=== PATIENT | female | born 1930 | race Caucasian/White ===

== ENCOUNTER → 2017-03-20 | Outpatient (CLI) | payer MEDICARE, BC | LOC: M.CT 08:43 | DX: K40.90 Unilateral inguinal hernia, without obstruction or gangrene, not specified as recurrent (principal); N28.89 Other specified disorders of kidney and ureter; D73.4 Cyst of spleen; I42.8 Other cardiomyopathies ==

== ENCOUNTER → 2017-10-22 | Outpatient (CLI) | payer MEDICARE, BC ==
--- NOTE | 2017-10-22 11:52 | 2DMMODE ---
[place] [address] 2 D/M-MODE ECHOCARDIOGRAM Name: SANAZ MARRERO Room: [facility]#: [id number] Admission: 10/22/17 Attend Phys: Navarro Blankenship Discharge: Date of : 34 Date of Service: 10/22/17 1152 Report #: [id number] THIS REPORT FOR: //name// APPROVED REPORT Study performed: 10/22/2017 09:17:33 EXAM: Comprehensive 2D, Doppler, and color-flow Echocardiogram Patient Location: Out-Patient Status: routine BSA: 1.75 HR: 65 bpm BP: 130/72 mmHg Other Information Study Quality: Good Indications Cardiomyopathy 2D Dimensions LVEF(%): 48.92 (>50%) IVSd: 13.10 (7-11mm) LVOT Diam: 20.63 (18-24mm) LVDd: 40.63 mm PWd: 13.19 (7-11mm) Ascending Ao: 28.81 (22-36mm) LVDs: 30.72 (25-40mm) Aortic Root: 30.65 mm Lake's LVEF: 48.92 % Volumes Left Atrial Volume (Systole) LA ESV Index: 18.30 mL/m2 Aortic Valve AoV Peak Hunter.: 1.42 m/s AO Peak Gr.: 8.04 mmHg LVOT Max P.37 mmHg AO Mean Gr.: 3.96 mmHg LVOT Mean P.22 mmHg LVOT Max V: 0.77 m/s AO V2 VTI: 24.56 cm LVOT Mean V: 0.51 m/s JORGE (VTI): 2.06 cm2 LVOT V1 VTI: 15.10 cm Mitral Valve E/A Ratio: 0.50 MV Decel. Time: 381.24 [place] [address] 2 D/M-MODE ECHOCARDIOGRAM Name: SANAZ MARRERO Room: [facility]#: [id number] Admission: 10/22/17 Attend Phys: Navarro Blankenship Discharge: Date of : 34 Date of Service: 10/22/17 1152 Report #: [id number] MV E Max Hunter.: 0.40 m/s MV PHT: 110.56 ms MVA (PHT): 1.99 cm2 TDI E/Lateral E': 8.00 E/Medial E': 6.67 Medial E' Hunter.: 0.06 m/s Lateral E' Hunter.: 0.05 m/s Pulmonary Valve PV Peak Hunter.: 1.00 m/s PV Peak Gr.: 4.02 mmHg Tricuspid Valve RAP Estimate: 5.00 mmHg TR Peak Gr.: 18.83 mmHg RVSP: 23.83 mmHg PA Pressure: 23.83 mmHg Left Ventricle The left ventricle is normal size. There is normal LV segmental wall motion. There is normal left ventricular wall thickness. Left ventricular systolic function is mildly decreased. LVEF is 45-50%. Grade I - abnormal relaxation pattern. Right Ventricle The right ventricle is normal size. The right ventricular systolic function is normal. Atria Left atrium is mildly dilated. The right atrium size is normal. Aortic Valve Aortic valve is mildly calcified. No aortic regurgitation is present. There is no aortic valvular stenosis. Mitral Valve Mild mitral annular calcification. There is no mitral valve regurgitation noted. No evidence of mitral valve stenosis. Tricuspid Valve The tricuspid valve is normal in structure. Mild tricuspid regurgitation. Pulmonic Valve The pulmonary valve is normal in structure. There is no pulmonic [place] [address] 2 D/M-MODE ECHOCARDIOGRAM Name: SANAZ MARRERO Room: [facility]#: [id number] Admission: 10/22/17 Attend Phys: Navarro Blankenship Discharge: Date of : 34 Date of Service: 10/22/17 1152 Report #: [id number] Great Vessels The aortic root is normal in size. IVC is normal in size and collapses with >50% inspiration Pericardium There is no pericardial effusion. <Conclusion> The left ventricle is normal size. There is normal left ventricular wall thickness. Left ventricular systolic function is mildly decreased. LVEF is 45-50%. Grade I - abnormal relaxation pattern. Left atrium is mildly dilated. Aortic valve is mildly calcified. No aortic regurgitation is present. There is no aortic valvular stenosis. Mild mitral annular calcification. There is no mitral valve regurgitation noted. No evidence of mitral valve stenosis. The tricuspid valve is normal in structure. Mild tricuspid regurgitation. IVC is normal in size and collapses with >50% inspiration There is no pericardial effusion. There is normal LV segmental wall motion. <ELECTRONICALLY SIGNED> By: Philip Navarro MD, FACC 10/22/17 1152 115 115 Philip Navarro MD, FACC /INF
== END ==
LOC: M.CRD 08:55
DX: I07.1 Rheumatic tricuspid insufficiency (principal); I35.8 Other nonrheumatic aortic valve disorders; I34.8 Other nonrheumatic mitral valve disorders; I42.8 Other cardiomyopathies

== ENCOUNTER 2018-06-16 18:21 | Emergency (ER) | payer MEDICARE, BC ==
[~2018-06-16] VITALS: Ht 165.1 cm; Wt 68.0 kg
[2018-06-16] MEDS ORDERED: XANAX 0.5 MG0.5 MG PO (18:44)
[2018-06-16] MEDS ORDERED: CO Q-10100 MG PO (18:45)
[2018-06-16] MEDS ORDERED: CHOLEAST (18:46)
[2018-06-16 18:59] LABS: ABSOLUTE EOSINOPHILS 0.1 thou/uL (0.0-0.7); ABSOLUTE LYMPHOCYTES 1.4 thou/uL (0.8-5.3); ABSOLUTE MONOCYTES 0.5 thou/uL (0.0-1.2); ABSOLUTE NEUTROPHILS 3.8 thou/uL (1.6-8.1); BASOPHILS 0.7 %; EOSINOPHILS 2.3 %; HEMATOCRIT 38.4 % (37.0-47.0); HEMOGLOBIN 12.8 gm/dL (12.0-15.0); LYMPHOCYTES 24.3 %; MCH 28.5 pg (26.0-34.0); MCHC 33.4 g/dL (28.0-37.0); MCV 85.3 fL (80.0-100.0); MONOCYTES 8.9 %; NUCLEATED RBCS 0 /100WBC; PLATELET COUNT* 194 thou/uL (150-400); POLYS 63.8 %; RBC 4.51 mil/uL (4.20-5.00); RDW-CV 14.2 % (10.5-14.5); WBC 5.9 thou/uL (4.0-11.0)
[2018-06-16 19:10] LABS: PROTIME 10.3 Seconds (9.20-11.50)
[2018-06-16 19:42] LABS: ALBUMIN 3.2 g/dL (3.4-5.0); CALCIUM 8.6 mg/dL (8.5-10.1); POTASSIUM 4.3 mmol/L (3.5-5.1); TOTAL BILIRUBIN 0.2 mg/dL (<0.1-1.0); TOTAL PROTEIN 6.3 g/dL (6.4-8.2)
[2018-06-16 21:43] VITALS: BP 134/57
--- NOTE | 2018-06-17 15:57 | EKG ---
[place] [address] ELECTROCARDIOGRAM REPORT Name: SANAZ MARRERO Room: [facility]#: [id number] Admission: 06/16/18 Attend Phys: Discharge: 06/16/18 Date of : 34 Report #: [id number] THIS REPORT FOR: //name// [facility] ED Test Date: 2018-06-16 Test Time: 18:28:20 Pat Name: SANAZDe MARRERO Department: Room: Gender: F [place] [employer]: : 1930 Requested By: Thi Craig Order Number: [id number] MD: Philip Navarro Measurements Intervals [place] Rate: 79 P: 53 [place]: 173 QRS: -27 QRSD: 146 T: 13 QT: 445 QTc: 511 Interpretive Statements Sinus rhythm Left bundle branch block Compared to ECG 12/17/2005 07:21:13 Sinus arrhythmia no longer present Ventricular premature complex(es) no longer present Electronically Signed On 06-17-2018 15:56:53 CDT by Philip Navarro [email or web address] <ELECTRONICALLY SIGNED> By: Philip Navarro MD, [facility] 06/17/18 1556 1828 1828 Philip Navarro MD, [facility] /EPI
== END 2018-06-16 21:43 | disposition home or self-care (01) ==
LOC: M.ERS 18:21
PROVIDERS: Personal Emergency Response Attendant
DX: R07.89 Other chest pain (principal); Z85.3 Personal history of malignant neoplasm of breast; Z85.528 Personal history of other malignant neoplasm of kidney

== ENCOUNTER → 2019-05-11 | Outpatient (CLI) | payer MEDICARE, BC ==
[~2019-05-11] MED LIST: CHOLEAST; CO Q-10100 MG PO; XANAX 0.5 MG0.5 MG PO
== END ==
LOC: M.RAD 09:31
DX: M43.16 Spondylolisthesis, lumbar region (principal); G89.11 Acute pain due to trauma

== ENCOUNTER 2019-05-21 09:55 | Emergency (ER) | payer MEDICARE, BC ==
[~2019-05-21] VITALS: Ht 165.1 cm; Wt 64.0 kg
[2019-05-21] MEDS ORDERED: NORVASC5 M1 PO (10:12)
[2019-05-21] MEDS ORDERED: DULCOLAX STOOL100 M1 PO (10:12)
[2019-05-21] MEDS ORDERED: CELEXA 10 MG TA10 M1 PO (10:12)
[2019-05-21] MEDS ORDERED: MELATONIN10 M3 PO (10:12)
[2019-05-21] MEDS ORDERED: ASA81BEC PO (10:12)
[2019-05-21] MEDS ORDERED: METAMUCIL0.4 GM PO (10:13)
[2019-05-21] MEDS ORDERED: FISH OIL 1,0001 EAC9 PO (10:13)
[2019-05-21 10:47] LABS: URINE BILIRUBIN NEGATIVE (Negative); URINE BLOOD NEGATIVE (Negative); URINE CLARITY CLEAR; URINE COLOR YELLOW; URINE GLUCOSE-RANDOM NEGATIVE (Negative); URINE KETONES NEGATIVE (Negative); URINE LEUKOCYTES-REFLEX NEGATIVE (Negative); URINE NITRITE-REFLEX NEGATIVE (Negative); URINE PROTEIN NEGATIVE (Negative); URINE UROBILINOGEN 0.2 E.U./dl (0.2-1.0)
[2019-05-21 11:19] LABS: HEMATOCRIT 41.1 % (37.0-47.0); HEMOGLOBIN 13.7 gm/dL (12.0-15.0); MCH 27.8 pg (26.0-34.0); MCHC 33.4 g/dL (28.0-37.0); MCV 83.1 fL (80.0-100.0); MPV 7.8 fl. (7.2-11.1); NUCLEATED RBCS 0 /100WBC; PLATELET COUNT* 274 thou/uL (150-400); RBC 4.94 mil/uL (4.20-5.00); RDW-CV 15.1 % (10.5-14.5); WBC 8.2 thou/uL (4.0-11.0)
[2019-05-21 11:25] LABS: CALCIUM 9.1 mg/dL (8.5-10.1); CREATININE 0.9 mg/dL (0.6-1.3); POTASSIUM 3.4 mmol/L (3.5-5.1)
[2019-05-21 11:30] LABS: ALBUMIN 2.9 g/dL (3.4-5.0); TOTAL PROTEIN 6.4 g/dL (6.4-8.2)
[2019-05-21 11:50] LABS: ABSOLUTE LYMPHOCYTES 0.5 thou/uL (0.8-5.3); ABSOLUTE MONOCYTES 0.5 thou/uL (0.0-1.2); ABSOLUTE NEUTROPHILS 7.2 thou/uL (1.6-8.1)
[2019-05-21 11:51] LABS: PLATELET ESTIMATE ADEQUATE
[2019-05-21 11:52] LABS: MICROCYTES 1+
[2019-05-21 13:45] VITALS: BP 172/67
== END 2019-05-21 13:46 | disposition short-term general hospital (02) ==
LOC: M.ERS 09:55
PROVIDERS: Physician Assistant
DX: S32.020A Wedge compression fracture of second lumbar vertebra, initial encounter for closed fracture (principal); C50.912 Malignant neoplasm of unspecified site of left female breast; C79.51 Secondary malignant neoplasm of bone; R94.5 Abnormal results of liver function studies; Z85.3 Personal history of malignant neoplasm of breast; X50.0XXA Overexertion from strenuous movement or load, initial encounter; Y93.89 Activity, other specified; Y92.89 Other specified places as the place of occurrence of the external cause; Y99.8 Other external cause status